=== PATIENT | male | born 1995 | race Caucasian/White ===

== ENCOUNTER 2017-04-28 20:20 | Emergency (ER) | payer OTHER ==
[~2017-04-28] VITALS: Ht 180.3 cm; Wt 100.0 kg
[2017-04-28] MEDS ORDERED: NORCOTAB PO (23:11)
[2017-04-28] MEDS ORDERED: NORCO, ANEXSIA 5/325MG TABLET (HYDROcodone/ACETAMINOPHEN) PO ONE (23:15)
[2017-04-29 00:10] VITALS: BP 121/71
--- NOTE | 2017-04-29 11:26 | REP ---
LEFT ANKLE COMPLETE: 04/28/2017. Clinical history: Trauma. Findings: There is soft tissue swelling over the lateral malleolus. On oblique and lateral views, there appears to be a posterior malleolar fracture. On magnified views of the lateral malleolus, there is a small tiny avulsion suggested off the distal tip of the lateral malleolus. The mortise joint was symmetric and preserved. There is no talar dome osteochondral defect. Subtalar joints are preserved. No other fractures. Impression. 1. Posterior malleolar fracture is noted on the oblique and lateral view and a tiny avulsion off the distal tip of the medial malleolus. I have placed arrows about the posterior malleolar fracture on these images. Signed by Cholo Fulton MD 04/29/2017 06:01 P
--- NOTE | 2017-04-30 12:11 | ED PDOC ---
Post-Departure Follow-Up Vy Granados RN, given directive to call pt, disclose fracture, fu w ft drum ortho, continue w crutches/air cast splint. Sarbjit Pearson MD Apr 30, 2017 12:11
== END 2017-04-29 00:13 | disposition home or self-care (01) ==
LOC: M ED 20:20
DX: S93.402A Sprain of unspecified ligament of left ankle, initial encounter (principal); S82.892A Other fracture of left lower leg, initial encounter for closed fracture; X50.1XXA Overexertion from prolonged static or awkward postures, initial encounter; Y92.099 Unspecified place in other non-institutional residence as the place of occurrence of the external cause; Y93.51 Activity, roller skating (inline) and skateboarding; Y99.9 Unspecified external cause status; Z87.891 Personal history of nicotine dependence